=== PATIENT | female | born 1995 | race Caucasian/White ===

== ENCOUNTER 2017-12-12 03:16 | Emergency (ER) | payer MEDICAID ==
[~2017-12-12] VITALS: Ht 157.5 cm; Wt 56.0 kg
[2017-12-12 03:29] VITALS: Ht 157.5 cm; Wt 56.0 kg
[2017-12-12 04:52] VITALS: BP 120/77
== END 2017-12-12 04:52 | disposition home or self-care (01) ==
LOC: ED 03:16
DX: R07.89 Other chest pain (principal); F41.9 Anxiety disorder, unspecified; Z88.8 Allergy status to other drugs, medicaments and biological substances
CPT/HCPCS: Q0162

== ENCOUNTER 2018-01-17 21:33 | Emergency (ER) | payer OTHER ==
[~2018-01-17] VITALS: Ht 157.5 cm; Wt 53.1 kg
[2018-01-17 21:40] VITALS: Ht 157.5 cm; Wt 53.1 kg
[2018-01-17 23:32] VITALS: BP 122/87
== END 2018-01-17 23:32 | disposition home or self-care (01) ==
LOC: ED 21:33
DX: R04.0 Epistaxis (principal); R51 Headache; R11.0 Nausea; Z88.8 Allergy status to other drugs, medicaments and biological substances
CPT/HCPCS: Q0162

== ENCOUNTER 2018-07-19 19:58 | Emergency (ER) | payer OTHER ==
[~2018-07-19] VITALS: Ht 157.5 cm; Wt 53.5 kg
[2018-07-19 20:15] VITALS: Ht 157.5 cm; Wt 53.5 kg
[2018-07-19 21:44] LABS: BASOPHIL % 0.7 % (0-2); PLATELET COUNT 205 x10^3mcL (130-400); RED CELL DISTRIBUTION WIDTH 13.6 % (11.5-14.5)
[2018-07-19 21:52] LABS: CALCIUM 8.8 mg/dL (8.5-10.1); CHLORIDE SERUM 105 mmol/L (98-107); CREATININE SERUM 0.6 mg/dL (0.6-1.0); GFR1 > 60 mL/min; GLUCOSE SERUM 84 mg/dL (74-106); POTASSIUM SERUM 3.2 mmol/L (3.5-5.1); SODIUM SERUM 141 mmol/L (136-145)
[2018-07-19 21:57] LABS: ALKALINE PHOSPHATASE 73 U/L (46-116); ALT/SGPT 14 U/L (14-59); AST/SGOT 14 U/L (15-37); BILIRUBIN TOTAL 0.4 mg/dL (0.20-1.00); LIPASE 168 IU/L (73-393); TOTAL PROTEIN, SERUM 7.6 g/dL (6.4-8.2)
[2018-07-19 22:48] VITALS: BP 122/68
== END 2018-07-19 22:48 | disposition home or self-care (01) ==
LOC: ED 19:58
PROVIDERS: Specialist
DX: K59.00 Constipation, unspecified (principal); R10.31 Right lower quadrant pain; Z88.8 Allergy status to other drugs, medicaments and biological substances
CPT/HCPCS: 36415

== ENCOUNTER 2018-10-11 16:55 | Emergency (ER) | payer OTHER ==
[~2018-10-11] VITALS: Ht 157.5 cm; Wt 53.3 kg
[2018-10-11 17:08] VITALS: Ht 157.5 cm; Wt 53.3 kg
[2018-10-11 18:17] LABS: BASOPHIL % 0.2 % (0-2); PLATELET COUNT 205 x10^3mcL (130-400)
[2018-10-11 18:25] LABS: CARBON DIOXIDE 25.4 mmol/L (21-32); CHLORIDE SERUM 101 mmol/L (98-107); CREATININE SERUM 0.9 mg/dL (0.6-1.0); GFR1 > 60 mL/min; GLUCOSE SERUM 91 mg/dL (74-106); POTASSIUM SERUM 3.7 mmol/L (3.5-5.1); SODIUM SERUM 137 mmol/L (136-145)
[2018-10-11 18:30] LABS: ALBUMIN 3.7 g/dL (3.4-5.0); ALKALINE PHOSPHATASE 72 U/L (46-116); ALT/SGPT 15 U/L (14-59); AST/SGOT 16 U/L (15-37); BILIRUBIN TOTAL 0.5 mg/dL (0.20-1.00); TOTAL PROTEIN, SERUM 7.6 g/dL (6.4-8.2)
[2018-10-11 18:46] LABS: UA SPECIFIC GRAVITY 1.015 (1.005-1.035); microscopic required? YES; urine erythrocyte 1+ (NEGATIVE)
[2018-10-11 19:44] VITALS: BP 108/53
== END 2018-10-11 19:44 | disposition home or self-care (01) ==
LOC: ED 16:55
PROVIDERS: Emergency Medicine
DX: N39.0 Urinary tract infection, site not specified (principal); T78.49XA Other allergy, initial encounter; Z88.8 Allergy status to other drugs, medicaments and biological substances; X58.XXXA Exposure to other specified factors, initial encounter
CPT/HCPCS: J0696; J1200

== ENCOUNTER 2018-11-27 11:03 | Emergency (ER) | payer OTHER ==
[~2018-11-27] VITALS: Ht 160 cm; Wt 52.6 kg
[2018-11-27 12:21] LABS: microscopic required? NO
[2018-11-27 12:30] LABS: urine erythrocyte NEGATIVE (NEGATIVE)
[2018-11-27 13:41] VITALS: BP 128/81
== END 2018-11-27 15:34 | disposition home or self-care (01) ==
LOC: ED 11:03
PROVIDERS: Emergency Medicine
DX: R82.998 Other abnormal findings in urine (principal); R10.30 Lower abdominal pain, unspecified; R51 Headache; Z88.8 Allergy status to other drugs, medicaments and biological substances
CPT/HCPCS: Q0162

== ENCOUNTER 2019-05-21 13:49 | Emergency (ER) | payer OTHER ==
[~2019-05-21] VITALS: Ht 157.5 cm; Wt 54.0 kg
[2019-05-21 14:01] VITALS: BP 143/82; Ht 157.5 cm; Wt 54.0 kg
== END 2019-05-21 14:21 | disposition home or self-care (01) ==
LOC: ED 13:49
DX: J40 Bronchitis, not specified as acute or chronic (principal); M94.0 Chondrocostal junction syndrome [Tietze]; Z88.8 Allergy status to other drugs, medicaments and biological substances